=== PATIENT | female | born 1990 | race Two or more races ===

== ENCOUNTER → 2019-04-08 | Outpatient (CLI) | payer MEDICAID | END | disposition home or self-care (01) | LOC: RAD 10:58 | PROVIDERS: ATTEND Internal Medicine Cardiovascular Disease | DX: I27.20 Pulmonary hypertension, unspecified (principal); R06.02 Shortness of breath | CPT/HCPCS: 71045; 78582; A9540; A9558 ==

== ENCOUNTER 2019-04-27 11:47 | Emergency (ER) | payer MEDICAID ==
[~2019-04-27] VITALS: Ht 167.6 cm; Wt 98.7 kg
[2019-04-27] MEDS ORDERED: DIPHENHYDRAMINE 50 MG/ML, 1ML IVPush ONE (12:30)
[2019-04-27] MEDS ORDERED: SODIUM CHLORIDE FLUSH 10ML SYR IVF ONE (12:30)
[2019-04-27] MEDS ORDERED: KETOROLAC 30 MG/1 ML IVPush ONE (12:30)
[2019-04-27] MEDS ORDERED: SODIUM CHLORIDE 0.9% 1,000ML IVBOLUS ONE (12:30)
[2019-04-27] MEDS ORDERED: METOCLOPRAMIDE 5 MG/ML, 2ML IVPush ONE (12:30)
--- NOTE | 2019-04-27 12:30 | NUR ---
THIS IS A 29 YO F W/ C/O WEAKNESS AND HEADACHE. RESPIRATIONS ARE EVEN AND UNLABORED. PATIENT IS IN NO ACUTE DISTRESS. PATIENT IS RESTING ON GURNEY WITH CALL LIGHT IN REACH DENIES FURTHER NEEDS AT THIS TIME.
[2019-04-27] MEDS ORDERED: METOCLOPRAMIDE 5 MG/ML, 2ML ONE (12:32)
[2019-04-27] MEDS ORDERED: KETOROLAC 30 MG/1 ML ONE (12:32)
[2019-04-27] MEDS ORDERED: DIPHENHYDRAMINE 50 MG/ML, 1ML ONE (12:32)
[2019-04-27 12:50] LABS: BASOPHILS # (AUTO) 0.02 x10^3/uL (0-0.1); BASOPHILS % (AUTO) 0 % (0-1); EOSINOPHILS # (AUTO) 0.02 x10^3/uL (0-0.4); EOSINOPHILS % (AUTO) 0 % (1-7); LYMPHOCYTES % (AUTO) 9 % (22-44); MD NO; MEAN CORPUSCULAR VOLUME 84.7 fL (80-100); MEAN PLATELET VOLUME 8.3 fL (7.4-10.4); MONOCYTES # (AUTO) 0.26 x10^3/uL (0.2-0.8); MONOCYTES % (AUTO) 4 % (2-9); NEUTROPHILS # (AUTO) 6.36 x10^3/uL (1.8-6.8); NEUTROPHILS % (AUTO) 86 % (42-75); PLATELET COUNT 206 x10^3/uL (130-400); RED BLOOD COUNT 5.04 x10^6/uL (3.82-5.3); RED CELL DISTRIBUTION WIDTH 14.4 % (9.6-15.2)
--- NOTE | 2019-04-27 12:55 | NUR ---
BREAK RN: PT AMBULATED TO XRAY AND BACK WITHOUT ASSISTANCE. UPON RETURN IV BOLUS INVUSING.
[2019-04-27 12:59] LABS: ALANINE AMINOTRANSFERASE 29 U/L (12-78); ALBUMIN 3.8 g/dL (3.4-5.0); ANION GAP 10 mmol/L (5-15); CALCIUM 8.5 mg/dL (8.5-10.1); CHLORIDE 104 mmol/L (98-107); CREATININE 1.06 mg/dL (0.55-1.02)
[2019-04-27 13:04] LABS: ALKALINE PHOSPHATASE 40 U/L (45-117); TOTAL PROTEIN 7.5 g/dL (6.4-8.2)
--- NOTE | 2019-04-27 13:34 | NUR ---
PATIENTS BP 84/49 ON BOTH ARMS. O2 SAT 86% ON RA. PATIENT PLACED ON 2L NC NOW AT 90%. UPDATED. 300ML LEFT ON BOLUS OF NS. WILL MONITOR AND REASSESS AFTER 1ST LITER NS COMPLETE.
--- NOTE | 2019-04-27 14:02 | NUR ---
REQUESTED URINE SAMPLE FROM PATIENT. PATIENT STATES SHE IS UNABLE TO PROVIDE AT THIS TIME. WILL TRY AGAIN IN 15.
--- NOTE | 2019-04-27 14:40 | NUR ---
PT AMBULATED TO BATHROOM WITH A STEADY GAIT. URINE SAMPLE SENT TO LAB. PT STATES THAT SHE FEELS SLIGHTLY DIZZY BUT THIS IS NOT EVIDENT PATIENT AMBULATES WELL.
[2019-04-27 14:52] LABS: MICROSCOPIC AUTO
[2019-04-27 14:53] LABS: CULTURE INDICATED? NO
[2019-04-27 15:22] VITALS: BP 92/52
--- NOTE | 2019-04-27 15:44 | NUR ---
Patient given discharge instructions and they have confirmed that they understand the instructions. Patient ambulatory with steady gait.
== END 2019-04-27 15:45 | disposition home or self-care (01) ==
LOC: ED 15:20
DX: G43.909 Migraine, unspecified, not intractable, without status migrainosus (principal); K59.00 Constipation, unspecified
CPT/HCPCS: 36415; 74022; 80053; 81001; 83690; 84443; 84703; 85025; 93005; 96374; 96375; 99284; J1200; J1885; J2765; J7030

== ENCOUNTER 2019-07-25 09:10 | Outpatient (CLI) | payer MEDICAID | END 2019-07-25 23:59 | disposition home or self-care (01) | LOC: CVU 09:10 | PROVIDERS: ATTEND Internal Medicine Cardiovascular Disease | DX: I08.8 Other rheumatic multiple valve diseases (principal); I10 Essential (primary) hypertension | CPT/HCPCS: 93306 ==

== ENCOUNTER 2019-08-28 08:13 | Day surgery (SDC) | payer MEDICAID ==
[~2019-08-28] VITALS: Ht 167.6 cm; Wt 95.5 kg
[2019-08-28 08:47] VITALS: BP 127/83
[2019-08-28] MEDS ORDERED: SPIR25TA5 PO (08:56)
[2019-08-28] MEDS ORDERED: CARV6.252 PO (08:56)
[2019-08-28] MEDS ORDERED: METF500T17 PO (08:56)
[2019-08-28] MEDS ORDERED: DIGO125T85 PO (08:56)
[2019-08-28] MEDS ORDERED: AMBR10TA3 PO (08:56)
[2019-08-28] MEDS ORDERED: LINA290C PO (08:56)
[2019-08-28] MEDS ORDERED: TORS20TA2 PO (08:56)
[2019-08-28] MEDS ORDERED: DEXL60CA2 PO (08:56)
[2019-08-28] MEDS ORDERED: SILD20TA2 PO (08:56)
[2019-08-28] MEDS ORDERED: DIPHENHYDRAMINE 50 MG/ML, 1ML IVPush ONE (09:00)
[2019-08-28] MEDS ORDERED: DIPHENHYDRAMINE 50 MG/ML, 1ML ONE (09:01)
[2019-08-28] MEDS ORDERED: MIDAZOLAM 1 MG/ML, 5ML ONE (10:26)
[2019-08-28] MEDS ORDERED: FENTANYL PF 100 MCG/2ML ONE (10:26)
== END 2019-08-28 13:14 | disposition home or self-care (01) ==
LOC: CACL 08:13
PROVIDERS: ATTEND Internal Medicine Cardiovascular Disease
DX: I27.21 Secondary pulmonary arterial hypertension (principal); I10 Essential (primary) hypertension; E11.9 Type 2 diabetes mellitus without complications; K21.9 Gastro-esophageal reflux disease without esophagitis; F41.9 Anxiety disorder, unspecified; E66.3 Overweight; Z68.32 Body mass index [BMI] 32.0-32.9, adult; Z79.84 Long term (current) use of oral hypoglycemic drugs; Z79.899 Other long term (current) drug therapy; Z88.5 Allergy status to narcotic agent
CPT/HCPCS: 93451; 99156; C1769; C1894; J1200; J2250; J3010

== ENCOUNTER → 2019-11-08 | Outpatient (CLI) | payer MEDICAID ==
[~2019-11-08] MED LIST: AMBR10TA3 PO; CARV6.252 PO; DEXL60CA2 PO; DIGO125T85 PO; LINA290C PO; METF500T17 PO; SILD20TA2 PO; SPIR25TA5 PO; TORS20TA2 PO
== END | disposition home or self-care (01) ==
LOC: CFH 08:21
PROVIDERS: ATTEND Registered Nurse
DX: I51.7 Cardiomegaly (principal)
CPT/HCPCS: 71046

== ENCOUNTER → 2020-02-10 | Outpatient (CLI) | payer MEDICAID | END | disposition home or self-care (01) | LOC: CVU 07:42 | PROVIDERS: ATTEND Internal Medicine Cardiovascular Disease | DX: I08.8 Other rheumatic multiple valve diseases (principal); I27.21 Secondary pulmonary arterial hypertension; R06.02 Shortness of breath | CPT/HCPCS: 93306 ==

== ENCOUNTER 2020-06-05 18:37 | Emergency (ER) | payer MEDICAID ==
[~2020-06-05] VITALS: Ht 167.6 cm; Wt 91.5 kg
[2020-06-05 18:45] VITALS: BP 104/68
--- NOTE | 2020-06-05 20:10 | NUR ---
THIS IS A 30Y F THAT COMES IN FOR DRAINAGE AND PAIN FROM INFUSION SITE, PT CHANGED SITE YESTERDAY DUE TO PAIN AND REPORTS PUSS AND BLOODY DRAINAGE FROM SITE. PT DENIES FEVERS/ CHILLS, RESTING ON [facility]
[2020-06-05] MEDS ORDERED: BUPIVACAINE 0.25% INFIL ONE (21:00)
[2020-06-05] MEDS ORDERED: LIDOCAINE-MPF 1%, 5ML INFIL ONE (21:00)
[2020-06-05] MEDS ORDERED: BUPIVACAINE 0.25% ONE (21:01)
[2020-06-05] MEDS ORDERED: LIDOCAINE-MPF 1%, 5ML ONE (21:01)
--- NOTE | 2020-06-05 21:07 | NUR ---
PROVIDER AT BEDSIDE FOR I&D AT THIS TIME
== END 2020-06-05 21:36 | disposition home or self-care (01) ==
LOC: ED 21:00
DX: L03.311 Cellulitis of abdominal wall (principal); I10 Essential (primary) hypertension; Z88.9 Allergy status to unspecified drugs, medicaments and biological substances; Z87.891 Personal history of nicotine dependence
CPT/HCPCS: 10160; 99284

== ENCOUNTER 2020-07-31 12:10 | Emergency (ER) | payer MEDICAID ==
[~2020-07-31] VITALS: Ht 167.6 cm; Wt 93.2 kg
[2020-07-31 12:55] LABS: BASOPHILS % (AUTO) 1 % (0-1); EOSINOPHILS % (AUTO) 3 % (1-7); LYMPHOCYTES % (AUTO) 25 % (22-44); MEAN CORPUSCULAR HEMOGLOBIN 26.2 pg (27.0-34.8); MEAN CORPUSCULAR HGB CONC 33.1 g/dL (32.4-35.8); MEAN PLATELET VOLUME 7.7 fL (7.4-10.4); MONOCYTES % (AUTO) 5 % (2-9); NEUTROPHILS % (AUTO) 67 % (42-75); PLATELET COUNT 195 x10^3/uL (130-400); RED BLOOD COUNT 4.69 x10^6/uL (3.82-5.3); RED CELL DISTRIBUTION WIDTH 15.3 % (9.6-15.2)
[2020-07-31 13:00] LABS: MD NO
--- NOTE | 2020-07-31 13:00 | NUR ---
PT HAS A PALPALBLE LUMP RIGHT ABDOMEN WHERE SHE HAD HAD A MEDICATION PUMP. PUMP HAD BEEN REMOVED AND PLACED ON A REGIMEN OF ANTIBIOTICS WHICH SHE FINISHED MONDAY
[2020-07-31 13:08] LABS: ALBUMIN 3.7 g/dL (3.4-5.0); ANION GAP 7 mmol/L (5-15); CALCIUM 8.8 mg/dL (8.5-10.1); CHLORIDE 113 mmol/L (98-107); CREATININE 0.74 mg/dL (0.55-1.02)
[2020-07-31 14:57] VITALS: BP 108/69
--- NOTE | 2020-07-31 15:15 | NUR ---
AFTER ULTRASOUND RESULTED PT GIVEN DISCHARGE
== END 2020-07-31 15:18 | disposition home or self-care (01) ==
LOC: ED 12:54
DX: R10.32 Left lower quadrant pain (principal); I27.20 Pulmonary hypertension, unspecified; G43.909 Migraine, unspecified, not intractable, without status migrainosus
CPT/HCPCS: 36415; 76705; 80048; 82040; 85025; 99284

== ENCOUNTER 2020-08-20 13:25 | Day surgery (SDC) | payer MEDICAID ==
[~2020-08-20] VITALS: Ht 167.6 cm; Wt 91.0 kg
[2020-08-20] MEDS ORDERED: DIPHENHYDRAMINE 50 MG/ML, 1ML ONE (13:29)
[2020-08-20] MEDS ORDERED: DIPHENHYDRAMINE 50 MG/ML, 1ML IVPush ONE (13:30)
[2020-08-20] MEDS ORDERED: FLUO10CA15 PO (13:43)
[2020-08-20] MEDS ORDERED: TREP10VI SC (13:43)
[2020-08-20] MEDS ORDERED: POTA10TA6 PO (13:43)
[2020-08-20] MEDS ORDERED: TREP5VIA SC (13:54)
[2020-08-20] MEDS ORDERED: PLEASE ENTER HEIGHT AND WEIGHT MC SCH (14:00)
[2020-08-20] MEDS ORDERED: FENTANYL PF 100 MCG/2ML ONE (14:02)
[2020-08-20] MEDS ORDERED: LIDOCAINE 2%, 20ML ONE (14:02)
[2020-08-20] MEDS ORDERED: MIDAZOLAM 1 MG/ML, 5ML ONE (14:02)
[2020-08-20 14:08] VITALS: BP 110/68
[2020-08-20 14:10] LABS: BASOPHILS % (AUTO) 1 % (0-1); EOSINOPHILS % (AUTO) 3 % (1-7); LYMPHOCYTES % (AUTO) 23 % (22-44); MEAN CORPUSCULAR HEMOGLOBIN 25.7 pg (27.0-34.8); MEAN CORPUSCULAR HGB CONC 33.1 g/dL (32.4-35.8); MEAN PLATELET VOLUME 8.2 fL (7.4-10.4); MONOCYTES % (AUTO) 5 % (2-9); NEUTROPHILS % (AUTO) 68 % (42-75); PLATELET COUNT 260 x10^3/uL (130-400); RED BLOOD COUNT 5.33 x10^6/uL (3.82-5.3); RED CELL DISTRIBUTION WIDTH 15.2 % (9.6-15.2)
[2020-08-20 14:17] LABS: MD NO
[2020-08-20 14:23] LABS: INTERNATIONAL NORMALIZED RATIO 1.16 (0.93-1.1); PROTHROMBIN TIME 12.4 Seconds (9.6-11.5)
[2020-08-20 14:29] LABS: ANION GAP 8 mmol/L (5-15); CALCIUM 8.8 mg/dL (8.5-10.1); CHLORIDE 110 mmol/L (98-107); CREATININE 0.78 mg/dL (0.55-1.02)
== END 2020-08-20 16:20 | disposition home or self-care (01) ==
LOC: CACL 13:25
PROVIDERS: ATTEND Internal Medicine Cardiovascular Disease
DX: I27.20 Pulmonary hypertension, unspecified (principal); E11.9 Type 2 diabetes mellitus without complications; F41.9 Anxiety disorder, unspecified; K21.9 Gastro-esophageal reflux disease without esophagitis; Z79.01 Long term (current) use of anticoagulants; Z79.899 Other long term (current) drug therapy; Z88.5 Allergy status to narcotic agent
CPT/HCPCS: 36415; 80048; 84703; 85025; 85610; 85730; 93451; 99156; C1894; J1200; J2250; J3010; 99157

== ENCOUNTER 2020-09-11 23:18 | Emergency (ER) | payer MEDICAID ==
[~2020-09-11] VITALS: Ht 167.6 cm; Wt 92.4 kg
[~2020-09-11 23:18] MED LIST changes: +FLUO10CA15 PO; +POTA10TA6 PO; +TREP10VI SC; +TREP5VIA SC
[2020-09-11 23:41] VITALS: BP 116/79
[2020-09-12] MEDS ORDERED: DEXAMETHASONE 4 MG TABLET ONE (00:22)
[2020-09-12] MEDS ORDERED: DEXAMETHASONE 4 MG TABLET PO ONE (00:30)
== END 2020-09-12 00:46 | disposition home or self-care (01) ==
LOC: ED 23:48
DX: R05 Cough (principal); I27.20 Pulmonary hypertension, unspecified; Z87.891 Personal history of nicotine dependence
CPT/HCPCS: 71046; 93005; 99283